=== PATIENT | male | born 1975 | race Caucasian/White ===

== ENCOUNTER → 2018-02-01 10:02 | Outpatient (CLI) | payer OTHER, SELFPAY ==
--- NOTE | 2018-02-01 10:03 | DI.RAD.S_ITS ---
PROCEDURE: XR ELBOW RT MIN 3V INDICATIONS: RIGHT ELBOW PAIN TECHNIQUE: 3 views of the elbow were acquired. COMPARISON: [facility], , XR ELBOW RT MIN 3V, 10/26/2017, 9:54. FINDINGS: Bones: No fractures or dislocations. No suspicious bony lesions. Soft tissues: No elbow joint effusion. No suspicious soft tissue calcifications. No radiopaque foreign body is detected. IMPRESSION: No acute fracture or dislocation of the right elbow. Dictated by: Marcello Aguiar M.D. on 02/01/2018 at 10:57 Approved by: Marcello Aguiar M.D. on 02/01/2018 at 10:59
== END ==
PROVIDERS: PCP Family Medicine; Visit Provider Family Medicine
DX: M25.521 Pain in right elbow (principal)
CPT/HCPCS: 73080

== ENCOUNTER 2023-03-27 10:19 | Day surgery (SDC) | payer OTHER, SELFPAY ==
[2023-03-23 08:04] VITALS: BMI 31.1
[2023-03-27] VITALS (7 sets, daily range): BP systolic 110–144; BP diastolic 73–84; PULSE 74–99; RESP 12–17; TEMP 36.2–36.8; O2SAT 93–96; BMI 31.1
[2023-03-27] MEDS: LACTATED RINGERS 1,000 ML 42 ML IV ×2 (11:19→12:43)
--- NOTE | 2023-03-27 11:57 | PM.PREOP ---
Pre-operative Note COVID-19 COVID-19 status: Not tested Interval Note History & Physical reviewed/Exam performed by Physician: Yes Changes to H&P: No ASA Class (for procedural sedation): II
[2023-03-27] MEDS: CEFAZOLIN 2 GM/100 ML PREMIX 100 ML IV (12:10)
[2023-03-27] MEDS: ACETAMINOPHEN IV 1,000 MG/100 ML VIAL 400 MG IV (12:20)
--- NOTE | 2023-03-27 12:25 | SUR.OPER ---
Supine on padded OR bed, head on pillow, arms secured on padded arm boards at <90 degrees abduction, legs uncrossed, safety belt at thigh, tape over blanket over lower legs.
[2023-03-27] MEDS: BUPIVACAINE 0.5% (PF) 30 ML, EPINEPHrine 0.15 MG INJ (12:31)
[2023-03-27] MEDS: OXYCODONE IR 5 MG TABLET PO (13:24)
[2023-03-27] MEDS: hydrOXYzine 50 MG/ML INJ 25 MG IM (13:24)
--- NOTE | 2023-04-02 13:40 | PM.OP.1 ---
Operative Date/Time/Diagnoses Date of procedure: 03/27/23 Time of procedure: 13:19 Pre-op diagnosis: Left inguinal hernia Post-op diagnosis: same Procedure & Clinicians Procedure: Open left inguinal hernia repair with mesh Same procedure as scheduled: Yes Surgeon: Remington Mukherjee Sales Operations Coordinator: Kenneth Lilly Anesthesia Type: General Operative Notes Procedure in detail: Preoperative antibiotic was administered. The patient was brought to the operating room and placed on the table in supine position general anesthesia was induced. The left groin was prepped and draped in the normal fashion and a time-out was performed. Roughly 10 mL of local anesthetic were injected into the skin and subcutaneous adipose tissue over the left groin. A 6 cm incision was made over the left inguinal canal. Dissection was carried down through the subcutaneous adipose tissue. A bridging vein was cauterized. We exposed the external oblique aponeurosis in the direction of the fibers. Additional local was injected deep to the aponeurosis. A 15 blade scalpel was used to momo the external oblique aponeurosis. Metzenbaum scissors were used to carefully open the aponeurosis in the direction of the fibers taking care not to injure the underlying ilioinguinal nerve which was well seen and protected. We completely exposed the inguinal canal. The cord was dissected free from the inguinal ligament and floor of the inguinal canal and the external oblique aponeurosis was dissected off of the internal oblique taking care not to injure the hypogastric nerve. We encircled the cord with a Joanie drain for retraction. There was a fatty direct hernia which was reduced into the abdomen. We placed a polypropylene mesh over the inguinal canal floor. The mesh was secured with multiple interrupted 3-0 Prolene sutures to the pubic tubercle and shelving edge of the inguinal ligament as well as to the conjoint tendon medially. We overlapped the tails to recreate an internal ring and secured the medial tail to the inguinal ligament with additional sutures. We injected some more local into the fatty tissue in the inguinal canal and cord. Finally, we removed the [place] drain and closed the external oblique fascia with a running 3-0 Vicryl suture. Skin was closed with interrupted 3-0 Vicryl dermal sutures and a running 4 Monocryl subcuticular stitch. EBL 5 mL Kenneth AGUILAR provided assistance with exposure, retraction and closure of incisions. The patient was awakened and brought to recovery room. Post-operative Condition: stable Disposition: PACU
== END 2023-03-27 13:54 | disposition home or self-care (01) ==
PROVIDERS: PCP Family Medicine; Referring Provider Surgery; Visit Provider Surgery
PROC: (CPT 49505; principal; 2023-03-27 11:15)
DX: K40.90 Unilateral inguinal hernia, without obstruction or gangrene, not specified as recurrent (principal); F17.210 Nicotine dependence, cigarettes, uncomplicated
CPT/HCPCS: 49505; J0131; J0171; J0690; J1100; J1170; J1885; J2405; J2704; J3010; J3410